=== PATIENT | female | born 1945 | race Caucasian/White ===

== ENCOUNTER 2017-05-18 14:54 | Emergency (ER) | payer OTHER ==
[~2017-05-18] VITALS: Ht 157.5 cm; Wt 49.6 kg
[~2017-05-18 14:54] MED LIST: ASPIRIN81 M1 PO; ATIVAN1 MG PO; Bentyl PO; FIBER PILL PO; FIBERTAB625 MG PO; LORAZEPAM1 MG; MULTIVITAMIN1 EAC2 PO; PAROXETINE HCL20 MG PO
[2017-05-18] MEDS ORDERED: NAPROSYN500 MG PO (16:53)
[2017-05-18 17:10] VITALS: BP 134/76
== END 2017-05-18 17:11 | disposition home or self-care (01) ==
LOC: EME 14:54
DX: S80.01XA Contusion of right knee, initial encounter (principal); S60.221A Contusion of right hand, initial encounter; W01.0XXA Fall on same level from slipping, tripping and stumbling without subsequent striking against object, initial encounter; Y93.01 Activity, walking, marching and hiking; Y92.830 Public park as the place of occurrence of the external cause; Z88.0 Allergy status to penicillin
CPT/HCPCS: 73130; 73564; 99281; 99283